=== PATIENT | male | born 1985 | race Hispanic/Latino ===

== ENCOUNTER 2017-08-12 16:07 | Emergency (ER) | payer SELFPAY ==
[~2017-08-12] VITALS: Ht 172.7 cm; Wt 60.0 kg
[2017-08-12] MEDS ORDERED: AUGMENTIN875TAB PO (16:25)
[2017-08-12 16:48] VITALS: BP 132/94
== END 2017-08-12 16:45 | disposition home or self-care (01) | DRG 159 ==
LOC: ED 16:07
DX: K03.81 Cracked tooth (principal)